=== PATIENT | female | born 1970 | race Caucasian/White ===

== ENCOUNTER → 2017-03-05 09:37 | Outpatient (CLI) | payer BC ==
[2015-09-27 12:12] VITALS: BMI 26.6
[~2017-03-05 09:37] MED LIST: EZFE 200200 MG PO; HYDROCODON-ACE1 EAC7 PO; IBUPROFEN600 MG PO; MULTIPLE VITAMI1 TA1 PO; PERCOCET 10/3251 TA1 PO; STOOL SOFTENER240 MG PO; TYLENOL PM1 TAB PO
== END | disposition home or self-care (01) ==
LOC: D.RAD 09:37
DX: R04.2 Hemoptysis (principal)

== ENCOUNTER → 2017-06-18 08:39 | Outpatient (CLI) | payer BC | END | disposition home or self-care (01) | LOC: D.RAD 08:39 | DX: J42 Unspecified chronic bronchitis (principal) ==